=== PATIENT | female | born 1990 | race Caucasian/White ===

== ENCOUNTER 2020-06-05 14:42 | Inpatient (IN) | payer MEDICAID ==
[~2020-06-05] VITALS: Ht 149.9 cm; Wt 88.8 kg
[2020-06-05] MEDS: NICOTINE 21MG/24HR 1 EA TRANSDERMAL TD SCH (09:00)
[2020-06-05] MEDS ORDERED: LEVE500T5 PO (16:02)
[2020-06-05] MEDS ORDERED: XULA1DIS TD (16:02)
[2020-06-05] MEDS ORDERED: LATU20TA PO (16:02)
[2020-06-05] MEDS ORDERED: MELA5TAB21 PO (16:02)
[2020-06-05] MEDS ORDERED: TRAZ-252 PO (16:02)
[2020-06-05] MEDS ORDERED: LATU40TA PO (16:02)
[2020-06-05] MEDS ORDERED: ATIV1TAB10 PO (16:05)
[2020-06-05] MEDS ORDERED: MELA1TAB9 PO (16:21)
[2020-06-05] MEDS ORDERED: MOM 30ML SUSPENSION UDC PO PRN (17:45)
[2020-06-05] MEDS: LURASIDONE HCL 40 MG TAB (LATUDA) PO SCH (18:40)
[2020-06-05] MEDS ORDERED: OLANZapine ORAL DISINTEGRATING TAB 5MG PO PRN (18:45)
[2020-06-05 18:47] VITALS: BP 138/84
[2020-06-05] MEDS: LORazepam 0.5 MG TAB PO PRN (18:49)
[2020-06-05] MEDS ORDERED: OLANZapine ORAL DISINTEGRATING TAB 5MG PO ONE (19:00)
[2020-06-05 19:54] VITALS: BP 156/97
[2020-06-05] MEDS: levETIRAcetam 250MG TABLET (KEPPRA) PO SCH (20:03)
[2020-06-06 06:23] VITALS: BP 143/91
[2020-06-06] MEDS: levETIRAcetam 250MG TABLET (KEPPRA) PO SCH ×2 (08:07→20:10)
[2020-06-06] MEDS: LURASIDONE HCL 40 MG TAB (LATUDA) PO SCH ×2 (08:07→18:15)
[2020-06-06] MEDS: NICOTINE 21MG/24HR 1 EA TRANSDERMAL TD SCH (08:09)
[2020-06-06] MEDS ORDERED: OLANZapine ORAL DISINTEGRATING TAB 5MG PO SCH (09:00)
[2020-06-06] MEDS: ACETAMINOPHEN TAB 650MG DOSE (2X325MG) PO PRN (10:12)
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
[2020-06-06] MEDS: LORazepam 0.5 MG TAB PO PRN (16:41)
[2020-06-06] MEDS: OLANZapine ORAL DISINTEGRATING TAB 5MG PO PRN (16:41)
[2020-06-06 16:58] VITALS: BP 128/82
--- NOTE | 2020-06-06 17:40 | HPEPDOC ---
[facility] Medical History & Physical Date of Admission Jun 06, 2020 Date of Service: Jun 06, 2020 Attending Physician: GUILLERMINA JACOBS MD History and Physical CHIEF COMPLAINT: psychosis HISTORY OF PRESENT ILLNESS: Mrs. Lanza is a 30-year-old female, admitted to [facility] with unspecified psychosis. Per report, patient hallucinating, observed speaking to individuals that are not in the room. She is transferred from [place] emergency department. She speaking to herself in the third person. . She is cooperative, and is answering questions. However, given her active psychosis, it is possible that her history may not be entirely reliable. She reports past medical history of diabetes mellitus and seizure disorder. On review of systems she complains of a sharp right-sided chest pain that is worse on inspiration. She reports a mild cough, now resolved but does not have any sputum production or shortness of breath. She denies fevers and chills. PAST MEDICAL HISTORY: 1. Type 2 diabetes mellitus 2. Seizure disorder PAST SURGICAL HISTORY: Patient was unable to specify, prior records are not available. SOCIAL HISTORY: smoker, unable to quantify denies etoh denies illicits FAMILY HISTORY: Patient is unable to specify, review of records did not yield information. ALLERGIES: Please see below. REVIEW OF SYSTEMS: CONSTITUTIONAL: patient denies fevers, chills HEENT: patient denies blurred vision, loss of vision, headache,. CARDIOVASCULAR: Patient reports sharp stabbing chest pain on the right side, denies pressure or pain, denies shortness of breath, denies radiation, denies palpitations RESPIRATORY: patient denies shortness of breath, cough, hemoptysis. GASTROINTESTINAL: patient denies abdominal pain, n/v/d, blood in stool. GENITOURINARY: patient denies dysuria, discharge. SKIN: patient denies rashes. MUSCULOSKELETAL: patient denies joint pain, neck pain. NEUROLOGICAL: patient denies focal weakness, numbness, seizures. PSYCHIATRIC: Patient is cooperative, speaking in the third person, avoids eye contact ENDOCRINE: patient denies polyuria, heat intolerance, cold intolerance. HEMATOLOGIC/LYMPHATIC: patient denies easy bruising. HOME MEDICATIONS: Please see below. PHYSICAL EXAMINATION: VITAL SIGNS: please see below General: NAD, comfortable HEENT: PERRLA, EOMI, sclerae clear. Right eye strabismus, reports present for many years. Neck: supple, normal ROM, no JVD Respiratory: lungs CTAB, no wheeze, no rales, no crackles CVS: RRR, normal S1, S2, no murmurs Abdo: soft, no masses, no hepatosplenomegaly, BS+, no rebound tenderness Extremities: no edema, pulses 2+ MSK: no joint deformities, normal ROM Neuro: no focal neuro deficits, moving all 4 extremities, CN2-12 intact. S trength 5/5 in all 4 extremities. No nystagmus. Psych: calm, cooperative, AAO x 3 LABORATORY DATA: See below. MICROBIOLOGY: Please see below. ASSESSMENT: 22-year-old female with a past medical history of systems are reported. Type 2 diabetes, admitted to the [facility] for unspecified psychosis. Hospitalist service consulted for assistance with medical management. She reported sharp pain on the right side of her chest that is worse with inspiration. Suspect pleuritic versus musculoskeletal pain. PLAN: Chest pain: R sided, stabbing, worse with inspiration. Suspect pleuritics vs MSK/chostochondritis. Will obtain CXR. Check Trop. Check EKG. Cough: resolved. reports mild, denies shortness of breath, sputum production. No hx of recent travel or sick contacts. Check CXR. Hx of DM2: patient reports, will check a1c. No diabetic meds on record. Seizure disorder: takes keppra 500 mg PO bid. No recent hx of seizure. Continue present regimen. Mild leukocytosis: noticed on transfer papers from [place]. UA showed some bacteria, trace LE. Patient is asymptomatic. Psychosis: per psychiatry Thank you for consult. Please reconsult as needed. Vital Signs Vital Signs Date Time Temp Pulse Resp B/P (MAP) Pulse Ox O2 Delivery O2 Flow Rate FiO2 06/06/20 16:58 98.2 90 20 128/82 (97) 06/05/20 15:44 96 Room Air Laboratory Data Labs 24H Laboratory Tests 2 06/06/20 09:19: Bedside Glucose (Misc Panel) 148H Home Medications Scheduled Lurasidone Hydrochloride (Latuda) 40 Mg Tablet, 40 MG PO QHS Lurasidone Hydrochloride (Latuda) 20 Mg Tablet, 20 MG PO QAM Norelgestromin/Ethin.estradiol (Xulane Patch) 1 Each Patch.tdwk, 1 PATCH TD QWEEK Trazodone HCl (Trazodone HCl) 50 Mg Tablet, 50 MG PO QHS levETIRAcetam (levETIRAcetam) 500 Mg Tablet, 500 MG PO BID Scheduled PRN Lorazepam (Ativan) 0.5 Mg Tablet, 0.5 MG PO DAILY PRN for ANXIETY Melatonin (Melatonin) 5 Mg Tablet, 5 MG PO QHS PRN for SLEEP Allergies Coded Allergies: aripiprazole (Verified Allergy, Unknown, 06/05/20) paroxetine (Verified Allergy, Unknown, 06/05/20) tomato (Verified Allergy, Unknown, 06/05/20) A-FIB/CHADSVASC A-FIB History Current/History of A-Fib/PAF?: No Current PO Anticoag Therapy: No Age/Risk Factor Scoring CHADSVASC: CHADSVASC Response (Comments) Value Age Risk Factor Age < 65 years old 0 Gender Risk Factor Female 1 Hx of CHF No 0 Hx of HTN No 0 Hx of Stroke/TIA/or VTE No 0 Hx of Diabetes No 0 Hx of Vascular Disease No 0 Total 1 GIULLERMINA JACOBS MD Jun 06, 2020 17:40
[2020-06-06 17:44] LABS: BASO % 0.3 % (0.0-1.0); EOS # 0.1 10^3/uL (0.0-0.5); EOS % 0.4 % (0.0-3.0); HEMOGLOBIN 13.1 g/dl (12.0-15.5); LYMPH # 3.1 10^3/uL (1.5-5.0); LYMPH % 27.4 % (24.0-44.0); MEAN CORPUSCULAR HGB CONC 33.6 g/dl (32.0-36.5); MEAN CORPUSCULAR VOLUME 92.4 fl (80.0-96.0); NEUTROPHILS # 7.2 10^3/uL (1.5-8.5); NEUTROPHILS % 62.5 % (36.0-66.0); PLATELET COUNT, AUTOMATED 278 10^3/uL (150-450); RED BLOOD COUNT 4.22 10^6/uL (4.00-5.40); WHITE BLOOD COUNT 11.5 10^3/uL (4.0-10.0)
[2020-06-06 18:09] LABS: HEMOGLOBIN A1c 5.9 %
[2020-06-06 18:16] LABS: ALBUMIN 3.4 GM/DL (3.2-5.2); ALT/SGPT 18 U/L (12-78); BILIRUBIN,TOTAL 0.3 MG/DL (0.2-1.0); BLOOD UREA NITROGEN 10 MG/DL (7-18); CALCIUM LEVEL 8.6 MG/DL (8.5-10.1); CARBON DIOXIDE LEVEL 27 MEQ/L (21-32); CHLORIDE LEVEL 105 MEQ/L (98-107); CREATININE FOR GFR 0.82 MG/DL (0.55-1.30); GLOMERULAR FILTRATION RATE > 60.0 (>60); GLUCOSE, FASTING 115 MG/DL (70-100); MAGNESIUM LEVEL 2.2 MG/DL (1.8-2.4); POTASSIUM SERUM 3.9 MEQ/L (3.5-5.1); SODIUM LEVEL 140 MEQ/L (136-145); TOTAL PROTEIN 7.6 GM/DL (6.4-8.2); TROPONIN I < 0.02 NG/ML (< 0.10)
[2020-06-06] MEDS: traZODone 50 MG TAB PO PRN (20:10)
--- NOTE | 2020-06-07 05:37 | ECGEPIP ---
[facility] Test Date: 2020-06-06 Pat Name: SHELDON JIMENEZ Department: Room: [place] [address] Gender: Female Sql Developer: LOUIE : 1990 Requested By: GUILLERMINA JACOBS Order Number: [id number] Reading MD: Faye Page Measurements Intervals [place] Rate: 71 P: 54 MN: 163 QRS: 41 QRSD: 85 T: 42 QT: 384 QTc: 419 Interpretive Statements SINUS RHYTHM WITH SINUS ARRHYTHMIA RIGHT VENT COND DELAY LOW QRS VOLTAGE IN PRECORDIAL LEADS T WAVE ABN V2 AND V3 PRWP NO PRIOR Electronically Signed on 06-07-2020 5:36:54 EDT by Faye Page
[2020-06-07 06:37] VITALS: BP 128/90
[2020-06-07] MEDS: levETIRAcetam 250MG TABLET (KEPPRA) PO SCH ×2 (08:33→20:01)
[2020-06-07] MEDS: LURASIDONE HCL 40 MG TAB (LATUDA) PO SCH ×2 (08:33→17:58)
[2020-06-07] MEDS: NICOTINE 21MG/24HR 1 EA TRANSDERMAL TD SCH (08:34)
--- NOTE | 2020-06-07 11:17 | REP ---
INDICATION: chest pain, cough. COMPARISON: None. TECHNIQUE: SINGLE PORTABLE AP VIEW OF THE CHEST WAS PERFORMED. FINDINGS: THERE IS NO ACUTE INFILTRATE OR PULMONARY EDEMA. LUNGS ARE CLEAR. HEART IS NOT SIGNIFICANTLY ENLARGED. MEDIASTINAL SILHOUETTE IS UNREMARKABLE. THE VISUALIZED OSSEOUS STRUCTURES ARE INTACT. IMPRESSION: NO ACUTE PULMONARY DISEASE. A PRELIMINARY REPORT WAS PROVIDED BY [facility] AT THE TIME OF THE EXAM. <Electronically signed by Akash Red > 06/07/20 1113
[2020-06-07] MEDS: OLANZapine ORAL DISINTEGRATING TAB 5MG PO PRN ×2 (11:41→16:17)
--- NOTE | 2020-06-07 15:22 | MHIPNPDOC ---
[facility] Progress Note Progress Note DATE OF SERVICE: 06/07/20 HISTORY: Patient is a 30-year old Single, Disabled, Domiciled, Female who was a 9.57 from [facility] for psychotic symptoms. Patient was exhibiting auditory hallucinations, homicidal ideation and disorganized thought processes. She is cognitively VITAL SIGNS: See below. NEW TEST RESULTS: CURRENT MEDICATIONS: See below. MENTAL STATUS EXAMINATION: Patient is a 30-year old female, who is admitted to [facility] on a 9.39 legal status for psychotic symptoms and homicidal threats. She is dressed in hospital scrubs, her hygiene and grooming is fair. Her eye contact is fleeting. Speech: Is spontaneous, mildly fast reg tone and volume Language skills are incoherent Thought processes including: non-linear, not reality based Thought content: Patient is reporting depression, no anxiety, remains psychotic, observed to be speaking auditory hallucinations and speaking in third person. Abstract reasoning, and computation: Poor Description of associations: Responding to internal stimuli, speaks in 3rd person Description of abnormal or psychotic thoughts: Auditory hallucinations, states she is a "vampire human" fantasy filled thinking, at times in the interview Judgment: poor Insight: poor Orientation: alert and oriented to person, place, time and situation. Recent and remote memory: intact Attention span and concentration: poor Language: fair Fund of knowledge: below average Mood: mildly irritable Affect: flat DIAGNOSES: Unspecified Psychotic Disorder Type 2 diabetes mellitus Seizure disorder Unspecified Intellectual disability ASSESSMENT: Patient continues to be exhibiting psychotic symptoms, talking to herself, talking in 3rd person, and demonstrating poor insight and judgment. She continues to talk to herself, to to other people in the room. She is ob served to be delusional, with auditory hallucinations. "I am not depressed, I am not anxious, I want to get better but [place]'s not better. "I am a vampire human and I want to have human blood in my diet" Patient describes depressive symptoms later in interview and states "I am sad, I have tears but they don't show how my family feels about [place]. I think I will have to live in a psychiatric hospital" MANAGEMENT PLAN: Continue all medications. Patient is not stable for discharge continues to exhibit psychotic symptoms and TIME SPENT: 25 minutes. Vital Signs Vital Signs Date Time Temp Pulse Resp B/P (MAP) Pulse Ox O2 Delivery O2 Flow Rate FiO2 06/07/20 06:37 97.8 100 18 128/90 (103) 06/05/20 15:44 96 Room Air Laboratory Data 24H Labs Laboratory Tests 2 06/06/20 17:34: Immature Granulocyte % (Auto) 0.4, Neutrophils (%) (Auto) 62.5, Lymphocytes (%) (Auto) 27.4, Monocytes (%) (Auto) 9.0H, Eosinophils (%) (Auto) 0.4, Basophils (%) (Auto) 0.3, Neutrophils # (Auto) 7.2, Lymphocytes # (Auto) 3.1, Monocytes # (Auto) 1.0H, Eosinophils # (Auto) 0.1, Basophils # (Auto) 0.0, Nucleated Red Blood Cells % (auto) 0.0, Anion Gap 8, Glomerular Filtration Rate > 60.0, Est imated Mean Plasma Glucose 123H, Hemoglobin A1c 5.9, Calcium Level 8.6, Magnesium Level 2.2, Total Bilirubin 0.3, Aspartate Amino Transf (AST/SGOT) 21, Alanine Aminotransferase (ALT/SGPT) 18, Alkaline Phosphatase 72, Troponin I < 0.02, Total Protein 7.6, Albumin 3.4, Albumin/Globulin Ratio 0.8L 06/06/20 18:10: Urine Color YELLOW, Urine Appearance HAZY, Urine pH 5.0, Urine Specific [place] 1.018, Urine Protein NEGATIVE, Urine Glucose (UA) NEGATIVE, Urine Ketones NEGATIVE, Urine Blood NEGATIVE, Urine Nitrite NEGATIVE, Urine Bilirubin NEGATIVE, Urine Urobilinogen 0.2, Urine Leukocyte Esterase NEGATIVE, Urine WBC (Auto) 5H, Urine RBC (Auto) 0, Urine Hyaline Casts (Auto) 0, Urine Bacteria (Auto) 1+H, Urine Squamous Epithelial Cells 3, Urine Mucus (Auto) SMALL, Urine Sperm (Auto) CBC/BMP Laboratory Tests 06/06/20 17:34 Current Medications Current Medications Medications (Trade) Dose Ordered Sig/Reese Route PRN Reason Start Time Stop Time Status Last Admin Dose Admin Acetaminophen (Tylenol Tab) 650 mg Q6HP PRN PO HEADACHE or DISCOMFORT 06/05/20 17:45 06/06/20 10:12 Al Hydrox/Mg Hydrox/Simethicone (Mylanta) 30 ml Q4HP PRN PO HEARTBURN/INDIGESTION 10/17/20 17:45 Home Med (Med Rec Complete!) ASDIRECTED XX 06/05/20 16:30 06/05/20 16:23 DC Levetiracetam (Keppra) 500 mg BID PO 06/05/20 21:00 06/07/20 08:33 Lorazepam (Ativan) 0.5 mg DAILY PRN PO ANXIETY 06/05/20 17:45 06/06/20 16:41 Lurasidone HCl (Latuda) 40 mg DAILY@08 PO 06/06/20 08:00 06/07/20 08:33 Lurasidone HCl (Latuda) 40 mg DAILY@18 PO 06/05/20 18:00 06/06/20 18:15 Magnesium Hydroxide (Milk Of Magnesia) 30 ml DAILYPRN PRN PO CONSTIPATION 06/05/20 17:45 Nicotine (Nicoderm Cq 21mg) 1 patch DAILY TD 06/05/20 09:00 Olanzapine (ZyPREXA ZYDIS) 5 mg BIDP PRN PO AGITATION 06/05/20 18:45 06/06/20 13:40 DC 06/05/20 20:03 Olanzapine (ZyPREXA ZYDIS) 5 mg Q4HP PRN PO AGITATION 06/06/20 13:45 06/06/20 16:41 Olanzapine (ZyPREXA ZYDIS) 10 mg BID PO 06/06/20 09:00 06/06/20 13:39 DC 06/06/20 08:08 Trazodone HCl (Desyrel) 50 mg QHSP PRN PO INSOMNIA 06/05/20 17:45 06/06/20 20:10 Allergies Coded Allergies: aripiprazole (Verified Allergy, Unknown, 06/05/20) paroxetine (Verified Allergy, Unknown, 06/05/20) tomato (Verified Allergy, Unknown, 06/05/20) THEODORA DALTON NP Jun 07, 2020 11:32
[2020-06-07] MEDS: LORazepam 0.5 MG TAB PO PRN (16:33)
[2020-06-07 17:25] VITALS: BP 147/82
[2020-06-07] MEDS: traZODone 50 MG TAB PO PRN (20:01)
[2020-06-08 06:16] VITALS: BP 144/92
[2020-06-08] MEDS: levETIRAcetam 250MG TABLET (KEPPRA) PO SCH ×2 (08:07→20:00)
[2020-06-08] MEDS: LURASIDONE HCL 40 MG TAB (LATUDA) PO SCH ×2 (08:07→18:15)
[2020-06-08] MEDS: NICOTINE 21MG/24HR 1 EA TRANSDERMAL TD SCH (08:09)
[2020-06-08] MEDS: OLANZapine 5 MG TAB PO SCH ×2 (11:31→20:00)
--- NOTE | 2020-06-08 15:13 | MHIPNPDOC ---
[facility] Progress Note Progress Note DATE OF SERVICE: 06/08/20 HISTORY: Patient is a 30-year old Single, Disabled, Domiciled, Female who was a 9.57 from [facility] for psychotic symptoms. Patient was exhibiting auditory hallucinations, homicidal ideation and disorganized thought processes. She is cognitively delayed. VITAL SIGNS: See below. NEW TEST RESULTS: CURRENT MEDICATIONS: See below. MENTAL STATUS EXAMINATION: Patient is a 30-year old female, who is admitted to [facility] on a 9.39 legal status for psychotic symptoms and homicidal threats. She is dressed in hospital scrubs, her hygiene and grooming is poor. Her eye contact is fleeting. Speech: Is normal tone and volume Language skills are incoherent Thought processes including: non-linear, not reality based Thought content: Patient is reporting depression, no anxiety, remains psychotic, observed to be speaking to auditory hallucinations and speaking in third person. Abstract reasoning, and computation: Poor Description of associations: Responding to internal stimuli, speaks in 3rd person Description of abnormal or psychotic thoughts: Auditory hallucinations, many times throughout the interview she reports that she is her friend Raquel, her Aunt Luna and then states [place] is talking through this provider. Believes that her family is Judgment: poor Insight: poor Orientation: alert and oriented to person, place, time Recent and remote memory: intact Attention span and concentration: poor Language: fair Fund of knowledge: below average Mood: depressed Affect: flat DIAGNOSES: Unspecified Psychotic Disorder Type 2 diabetes mellitus Seizure disorder Unspecified Intellectual disability ASSESSMENT: Patient continues to be exhibiting psychotic symptoms, talking to herself, talking in 3rd person, and demonstrating poor insight and judgment. She continues to talk to herself, to to other people in the room. She is observed to be delusional, with auditory hallucinations. Patient states that the voices "Aunt Luna" are telling her to shave her armpits and legs. Later in the interview, she states that she is now Raquel and that "they keep putting sleeping pills in [place]'s to kill her." Raquel then states that she is and that she needs to stay in the hospital until her baby is born. Patient states she needs has to stay in the hospital because "My whole family is " Patient remains acutely psychotic. MANAGEMENT PLAN: Continue all medications. Patient is not stable for discharge continues to exhibit psychotic symptoms. TIME SPENT: 20 minutes. Vital Signs Vital Signs Date Time Temp Pulse Resp B/P (MAP) Pulse Ox O2 Delivery O2 Flow Rate FiO2 06/08/20 06:16 98.3 112 16 144/92 (109) 98 Room Air Current Medications Current Medications Medications (Trade) Dose Ordered Sig/Reese Route PRN Reason Start Time Stop Time Status Last Admin Dose Admin Acetaminophen (Tylenol Tab) 650 mg Q6HP PRN PO HEADACHE or DISCOMFORT 06/05/20 17:45 06/06/20 10:12 Al Hydrox/Mg Hydrox/Simethicone (Mylanta) 30 ml Q4HP PRN PO HEARTBURN/INDIGESTION 06/05/20 17:45 Home Med (Med Rec Complete!) ASDIRECTED XX 06/05/20 16:30 06/05/20 16:23 DC Levetiracetam (Keppra) 500 mg BID PO 06/05/20 21:00 06/08/20 08:07 Lorazepam (Ativan) 0.5 mg DAILY PRN PO ANXIETY 06/05/20 17:45 06/07/20 16:33 Lurasidone HCl (Latuda) 40 mg DAILY@08 PO 06/06/20 08:00 06/08/20 08:07 Lurasidone HCl (Latuda) 40 mg DAILY@18 PO 06/05/20 18:00 06/07/20 17:58 Magnesium Hydroxide (Milk Of Magnesia) 30 ml DAILYPRN PRN PO CONSTIPATION 06/05/20 17:45 Nicotine (Nicoderm Cq 21mg) 1 patch DAILY TD 06/05/20 09:00 Olanzapine (ZyPREXA ZYDIS) 5 mg BIDP PRN PO AGITATION 06/05/20 18:45 06/06/20 13:40 DC 06/05/20 20:03 Olanzapine (ZyPREXA ZYDIS) 5 mg Q4HP PRN PO AGITATION 06/06/20 13:45 06/07/20 16:17 Olanzapine (ZyPREXA ZYDIS) 10 mg BID PO 06/06/20 09:00 06/06/20 13:39 DC 06/06/20 08:08 Olanzapine (ZyPREXA) 5 mg BID PO 06/08/20 09:00 06/08/20 11:31 Trazodone HCl (Desyrel) 50 mg QHSP PRN PO INSOMNIA 06/05/20 17:45 06/07/20 20:01 Allergies Coded Allergies: aripiprazole (Verified Allergy, Unknown, 06/05/20) paroxetine (Verified Allergy, Unknown, 06/05/20) tomato (Verified Allergy, Unknown, 06/05/20) THEODORA DALTON NP Jun 08, 2020 15:13
[2020-06-08] MEDS: traZODone 50 MG TAB PO PRN (20:00)
[2020-06-08] MEDS: ACETAMINOPHEN TAB 650MG DOSE (2X325MG) PO PRN (21:36)
[2020-06-08] MEDS: OLANZapine ORAL DISINTEGRATING TAB 5MG PO PRN (23:03)
[2020-06-09 06:31] VITALS: BP 142/94
[2020-06-09] MEDS: LURASIDONE HCL 40 MG TAB (LATUDA) PO SCH ×2 (07:25→17:28)
[2020-06-09] MEDS: NICOTINE 21MG/24HR 1 EA TRANSDERMAL TD SCH (09:00)
[2020-06-09] MEDS: levETIRAcetam 250MG TABLET (KEPPRA) PO SCH ×2 (09:03→20:13)
[2020-06-09] MEDS: OLANZapine 5 MG TAB PO SCH ×2 (09:03→20:13)
[2020-06-09] MEDS: OLANZapine ORAL DISINTEGRATING TAB 5MG PO PRN (09:04)
[2020-06-09] MEDS: ACETAMINOPHEN TAB 650MG DOSE (2X325MG) PO PRN (11:18)
[2020-06-09] MEDS: LORazepam 0.5 MG TAB PO PRN (12:43)
[2020-06-09 17:13] VITALS: BP 155/87
--- NOTE | 2020-06-09 17:32 | MHIPNPDOC ---
[facility] Progress Note Progress Note DATE OF SERVICE: 06/09/20 HISTORY: Patient is a 30-year old Single, Disabled, Domiciled, Female who was a 9.57 from [facility] for psychotic symptoms. Patient was exhibiting auditory hallucinations, homicidal ideation and disorganized thought processes. She is cognitively delayed. VITAL SIGNS: See below. NEW TEST RESULTS: CURRENT MEDICATIONS: See below. MENTAL STATUS EXAMINATION: Patient is a 30-year old female, who is admitted to [facility] on a 9.39 legal status for psychotic symptoms and homicidal threats. She is dressed in hospital scrubs, her hygiene and grooming is poor. Her eye contact is fleeting. Speech: Is normal tone and volume Language skills are incoherent Thought processes including: non-linear, not reality based Thought content: Patient is reporting depression, no anxiety, remains psychotic, observed to be speaking to auditory hallucinations and speaking in third person. Abstract reasoning, and computation: Poor Description of associations: Responding to internal stimuli, speaks in 3rd person Description of abnormal or psychotic thoughts: Auditory hallucinations, many times throughout the interview she reports that she is her brother is telling her to take scissors to cut herself. She states that she is "Ok" and then states that the voices are horrible. She states "Am I going crazy?" She had reported that her voices are command hallucinations and that they are encouraging her to hurt herself. She continued to report that she was not [place] and that [place] was in danger Judgment: poor Insight: poor Orientation: alert and oriented to person, place, time Recent and remote memory: intact Attention span and concentration: poor Language: fair Fund of knowledge: below average Mood: depressed "I am ok" Affect: blunted DIAGNOSES: Unspecified Psychotic Disorder Type 2 diabetes mellitus Seizure disorder Unspecified Intellectual disability ASSESSMENT: Patient continues to be exhibiting psychotic symptoms, talking to herself, talking in 3rd person, and demonstrating poor insight and judgment. She continues to talk to herself, to to other people in the room. She is observed to be delusional, with auditory hallucinations. Patient states that the voices "Aunt Luna" are telling her to shave her armpits and legs. Later in the interview, she states that she is now Raquel and that "they keep putting sleeping pills in [place]'s to kill her." Raquel then states that she is and that she needs to stay in the hospital until her baby is born. Patient states she needs has to stay in the hospital because "My whole family is " I spoke to her sitter today, her sitter had reported that she speaks in 3rd person, but prior to and after her interview with me patient did not have any reporting of wanting to hurt herself. When she was in group she was allowed to have scissors but she refused to use them and returned them. Patient remains acutely psychotic. MANAGEMENT PLAN: Continue all medications. Patient is not stable for discharge continues to exhibit psychotic symptoms. TIME SPENT: 15 minutes. Vital Signs Vital Signs Date Time Temp Pulse Resp B/P (MAP) Pulse Ox O2 Delivery O2 Flow Rate FiO2 06/09/20 17:13 98.1 101 22 155/87 (109) 97 Room Air Current Medications Current Medications Medications (Trade) Dose Ordered Sig/Reese Route PRN Reason Start Time Stop Time Status Last Admin Dose Admin Acetaminophen (Tylenol Tab) 650 mg Q6HP PRN PO HEADACHE or DISCOMFORT 06/05/20 17:45 06/09/20 11:18 Al Hydrox/Mg Hydrox/Simethicone (Mylanta) 30 ml Q4HP PRN PO HEARTBURN/INDIGESTION 06/05/20 17:45 Home Med (Med Rec Complete!) ASDIRECTED XX 06/05/20 16:30 06/05/20 16:23 DC Levetiracetam (Keppra) 500 mg BID PO 06/05/20 21:00 06/09/20 09:03 Lorazepam (Ativan) 0.5 mg DAILY PRN PO ANXIETY 06/05/20 17:45 06/09/20 12:43 Lurasidone HCl (Latuda) 40 mg DAILY@08 PO 06/06/20 08:00 06/09/20 07:25 Lurasidone HCl (Latuda) 40 mg DAILY@18 PO 06/05/20 18:00 06/08/20 18:15 Magnesium Hydroxide (Milk Of Magnesia) 30 ml DAILYPRN PRN PO CONSTIPATION 06/05/20 17:45 Nicotine (Nicoderm Cq 21mg) 1 patch DAILY TD 06/05/20 09:00 Olanzapine (ZyPREXA ZYDIS) 5 mg BIDP PRN PO AGITATION 06/05/20 18:45 06/06/20 13:40 DC 06/05/20 20:03 Olanzapine (ZyPREXA ZYDIS) 5 mg Q4HP PRN PO AGITATION 06/06/20 13:45 06/09/20 09:04 Olanzapine (ZyPREXA ZYDIS) 10 mg BID PO 06/06/20 09:00 06/06/20 13:39 DC 06/06/20 08:08 Olanzapine (ZyPREXA) 5 mg BID PO 06/08/20 09:00 06/09/20 09:03 Trazodone HCl (Desyrel) 50 mg QHSP PRN PO INSOMNIA 06/05/20 17:45 06/09/20 11:31 DC 06/08/20 20:00 Trazodone HCl (Desyrel) 100 mg QPM PO 06/09/20 21:00 Allergies Coded Allergies: acetaminophen (Verified Allergy, Unknown, 06/09/20) PER PT'S MOTHER aripiprazole (Verified Allergy, Unknown, 06/05/20) methylphenidate (Verified Allergy, Unknown, 06/09/20) PER PT'S MOTHER oxycodone (Verified Allergy, Unknown, 06/09/20) PER PT'S MOTHER paroxetine (Verified Allergy, Unknown, 06/05/20) tomato (Verified Allergy, Unknown, 06/05/20) THEODORA DALTON NP Jun 09, 2020 17:32
[2020-06-09] MEDS: traZODone 100 MG TAB PO SCH (20:13)
[2020-06-10 07:21] VITALS: BP 153/78
[2020-06-10] MEDS: LURASIDONE HCL 40 MG TAB (LATUDA) PO SCH ×2 (08:56→17:04)
[2020-06-10] MEDS: NICOTINE 21MG/24HR 1 EA TRANSDERMAL TD SCH (09:00)
[2020-06-10] MEDS: OLANZapine 5 MG TAB PO SCH (09:54)
[2020-06-10] MEDS: levETIRAcetam 250MG TABLET (KEPPRA) PO SCH ×2 (09:54→20:19)
--- NOTE | 2020-06-10 16:06 | MHIPNPDOC ---
[facility] Progress Note Progress Note DATE OF SERVICE: 06/10/20 HISTORY: Patient is a 30-year old Single, Disabled, Domiciled, Female who was a 9.57 from [facility] for psychotic symptoms. Patient was exhibiting auditory hallucinations, homicidal ideation and disorganized thought processes. She is cognitively delayed. VITAL SIGNS: See below. NEW TEST RESULTS: CURRENT MEDICATIONS: See below. MENTAL STATUS EXAMINATION: Patient is a 30-year old female, who is [facility] on a 9.39 legal status for psychotic symptoms and homicidal threats. She is dressed in hospital scrubs, her hygiene and grooming is poor. Her eye contact is fleeting. Speech: Is normal tone and volume Language skills are incoherent Thought processes including: non-linear, not reality based Thought content: Patient is reporting depression, no anxiety, remains psychotic, observed to be speaking to auditory hallucinations and speaking in third person. Abstract reasoning, and computation: Poor Description of associations: Responding to internal stimuli, speaks in 3rd person Description of abnormal or psychotic thoughts: Auditory hallucinations, many times throughout the interview she reports that she is her brother is telling her to take scissors to cut herself. She states that she is "Ok" and then states that the voices are horrible. She states "Am I going crazy?" She had reported that her voices are command hallucinations and that they are encouraging her to hurt herself. She continued to report that she was not [place] and that [place] was in danger Judgment: poor Insight: poor Orientation: alert and oriented to person, place, time Recent and remote memory: intact Attention span and concentration: poor Language: fair Fund of knowledge: below average Mood: depressed "I am ok" Affect: blunted DIAGNOSES: Unspecified Psychotic Disorder Schizoaffective Disorder Cognitive Impairment Type 2 diabetes mellitus Seizure disorder Unspecified Intellectual disability ASSESSMENT: Patient continues to be exhibiting psychotic symptoms, talking to herself, talking in 3rd person, and demonstrating poor insight and judgment. She continues to talk to herself, to to other people in the room. She is observed to be delusional, with auditory hallucinations. Patient states that she is unsure where she will return as "everyone in her family is gone" Then states that her mother told her that she had to "get out." States that she is living as a "vampire-human and that she has no bones in her body." She then started speaking in third person and stated that she is [place] and that [place] cannot go home because she ([place]nette) was going to kill her or had already killed [place]. Throughout the interview repeatedly stood up and down in the seat but acted like she was going to the window and stood in one place responding quietly to internal stimuli. Patient remains acutely psychotic. MANAGEMENT PLAN: Continue all medications. Patient is not stable for discharge continues to exhibit psychotic symptoms. TIME SPENT: 20 minutes. ASSESSMENT: MANAGEMENT PLAN: . TIME SPENT: minutes. Vital Signs Vital Signs Date Time Temp Pulse Resp B/P (MAP) Pulse Ox O2 Delivery O2 Flow Rate FiO2 06/10/20 07:21 97.8 84 16 153/78 (103) Room Air 06/09/20 17:13 97 Current Medications Current Medications Medications (Trade) Dose Ordered Sig/Reese Route PRN Reason Start Time Stop Time Status Last Admin Dose Admin Acetaminophen (Tylenol Tab) 650 mg Q6HP PRN PO HEADACHE or DISCOMFORT 06/05/20 17:45 06/09/20 11:18 Al Hydrox/Mg Hydrox/Simethicone (Mylanta) 30 ml Q4HP PRN PO HEARTBURN/INDIGESTION 06/05/20 17:45 Home Med (Med Rec Complete!) ASDIRECTED XX 06/05/20 16:30 06/05/20 16:23 DC Levetiracetam (Keppra) 500 mg BID PO 06/05/20 21:00 06/10/20 09:54 Lorazepam (Ativan) 0.5 mg DAILY PRN PO ANXIETY 06/05/20 17:45 06/09/20 12:43 Lurasidone HCl (Latuda) 40 mg DAILY@08 PO 06/06/20 08:00 06/10/20 08:56 Lurasidone HCl (Latuda) 40 mg DAILY@18 PO 06/05/20 18:00 06/09/20 17:28 Magnesium Hydroxide (Milk Of Magnesia) 30 ml DAILYPRN PRN PO CONSTIPATION 06/05/20 17:45 Nicotine (Nicoderm Cq 21mg) 1 patch DAILY TD 06/05/20 09:00 Olanzapine (ZyPREXA ZYDIS) 5 mg BIDP PRN PO AGITATION 06/05/20 18:45 06/06/20 13:40 DC 06/05/20 20:03 Olanzapine (ZyPREXA ZYDIS) 5 mg Q4HP PRN PO AGITATION 06/06/20 13:45 06/09/20 09:04 Olanzapine (ZyPREXA ZYDIS) 10 mg BID PO 06/06/20 09:00 06/06/20 13:39 DC 06/06/20 08:08 Olanzapine (ZyPREXA) 5 mg BID PO 06/08/20 09:00 06/10/20 09:54 Trazodone HCl (Desyrel) 50 mg QHSP PRN PO INSOMNIA 06/05/20 17:45 06/09/20 11:31 DC 06/08/20 20:00 Trazodone HCl (Desyrel) 100 mg QPM PO 06/09/20 21:00 06/09/20 20:13 Allergies Coded Allergies: acetaminophen (Verified Allergy, Unknown, 06/09/20) PER PT'S MOTHER aripiprazole (Verified Allergy, Unknown, 06/05/20) methylphenidate (Verified Allergy, Unknown, 06/09/20) PER PT'S MOTHER oxycodone (Verified Allergy, Unknown, 06/09/20) PER PT'S MOTHER paroxetine (Verified Allergy, Unknown, 06/05/20) tomato (Verified Allergy, Unknown, 06/05/20) THEODORA DALTON NP Jun 10, 2020 11:38
[2020-06-10] MEDS: LORazepam 0.5 MG TAB PO PRN (17:16)
[2020-06-10] MEDS: ACETAMINOPHEN TAB 650MG DOSE (2X325MG) PO PRN (17:17)
[2020-06-10 19:08] VITALS: BP 139/89
[2020-06-10 19:09] VITALS: BP 139/73
[2020-06-10] MEDS: traZODone 100 MG TAB PO SCH (20:19)
[2020-06-10] MEDS: OLANZapine 10 MG TAB PO SCH (20:19)
[2020-06-11 06:14] VITALS: BP 136/81
[2020-06-11] MEDS: LURASIDONE HCL 40 MG TAB (LATUDA) PO SCH ×2 (08:32→17:04)
[2020-06-11] MEDS: levETIRAcetam 250MG TABLET (KEPPRA) PO SCH ×2 (08:32→20:14)
[2020-06-11] MEDS: OLANZapine 5 MG TAB PO SCH (08:33)
[2020-06-11] MEDS: NICOTINE 21MG/24HR 1 EA TRANSDERMAL TD SCH (08:33)
[2020-06-11] MEDS: OLANZapine ORAL DISINTEGRATING TAB 5MG PO PRN (11:06)
--- NOTE | 2020-06-11 13:15 | MHIPNPDOC ---
[facility] Progress Note Progress Note DATE OF SERVICE: 06/11/20 HISTORY: Patient is a 30-year old Single, Disabled, Domiciled, Female who was a 9.57 from [facility] for psychotic symptoms. Patient was exhibiting auditory hallucinations, homicidal ideation and disorganized thought processes. She is cognitively delayed. VITAL SIGNS: See below. NEW TEST RESULTS: CURRENT MEDICATIONS: See below. MENTAL STATUS EXAMINATION: Patient is a 30-year old female, who is admitted to [facility] on a 9.39 legal status for psychotic symptoms and homicidal threats. She is dressed in hospital scrubs, her hygiene and grooming is poor. Her eye contact is fleeting. Speech: Is normal tone and volume Language skills are incoherent Thought processes including: non-linear, not reality based states "I am confused, why am I here, when can I go home?" Thought content: Patient is reporting depression, reports elevated anxiety, remains psychotic, observed to be speaking to auditory hallucinations and speaking in third person but today this is minimally. Abstract reasoning, and computation: Poor Description of associations: Responding to internal stimuli, speaks in 3rd person Description of abnormal or psychotic thoughts: Auditory hallucinations, many times throughout the interview she reports that she is her brother is telling her to take scissors to cut herself. She states that she is "Ok" and then states that the voices are horrible. She states "Why doesn't my mother want me?" She had reported that her voices are command hallucinations and that they are encouraging her to hurt herself. S Judgment: poor Insight: poor Orientation: alert and oriented to person, place, time Recent and remote memory: intact Attention span and concentration: poor Language: fair Fund of knowledge: below average Mood: depressed "I am ok" Affect: blunted DIAGNOSES: Unspecified Psychotic Disorder Schizoaffective Disorder Cognitive Impairment Type 2 diabetes mellitus Seizure disorder Unspecified Intellectual disability ASSESSMENT: Patient continues to be exhibiting psychotic symptoms, talking to herself, talking in 3rd person, and demonstrating poor insight and judgment. She continues to talk to herself, to to other people in the room. She is observed to be delusional, with auditory hallucinations. She is confused in the interview. Patient has been on 1:1 sitter since her admission and at this time, there is no thought to remove this as she is confused and tearful. I do believe that she should be trialed on Q15 minute observations if staffing allows for this. Patient remains acutely psychotic. MANAGEMENT PLAN: Continue all medications. Patient is not stable for discharge continues to exhibit psychotic symptoms. TIME SPENT: 20 minutes. Vital Signs Vital Signs Date Time Temp Pulse Resp B/P (MAP) Pulse Ox O2 Delivery O2 Flow Rate FiO2 06/11/20 06:14 98.6 73 14 136/81 (99) Room Air 06/09/20 17:13 97 Current Medications Current Medications Medications (Trade) Dose Ordered Sig/Reese Route PRN Reason Start Time Stop Time Status Last Admin Dose Admin Acetaminophen (Tylenol Tab) 650 mg Q6HP PRN PO HEADACHE or DISCOMFORT 06/05/20 17:45 06/10/20 17:17 Al Hydrox/Mg Hydrox/Simethicone (Mylanta) 30 ml Q4HP PRN PO HEARTBURN/INDIGESTION 06/05/20 17:45 Home Med (Med Rec Complete!) ASDIRECTED XX 06/05/20 16:30 06/05/20 16:23 DC Levetiracetam (Keppra) 500 mg BID PO 06/05/20 21:00 06/11/20 08:32 Lorazepam (Ativan) 0.5 mg DAILY PRN PO ANXIETY 06/05/20 17:45 06/10/20 17:16 Lurasidone HCl (Latuda) 40 mg DAILY@08 PO 06/06/20 08:00 06/11/20 08:32 Lurasidone HCl (Latuda) 40 mg DAILY@18 PO 06/05/20 18:00 06/10/20 17:04 Magnesium Hydroxide (Milk Of Magnesia) 30 ml DAILYPRN PRN PO CONSTIPATION 06/05/20 17:45 Nicotine (Nicoderm Cq 21mg) 1 patch DAILY TD 06/05/20 09:00 Olanzapine (ZyPREXA ZYDIS) 5 mg BIDP PRN PO AGITATION 06/05/20 18:45 06/06/20 13:40 DC 06/05/20 20:03 Olanzapine (ZyPREXA ZYDIS) 5 mg Q4HP PRN PO AGITATION 06/06/20 13:45 06/11/20 11:06 Olanzapine (ZyPREXA ZYDIS) 10 mg BID PO 06/06/20 09:00 06/06/20 13:39 DC 06/06/20 08:08 Olanzapine (ZyPREXA) 5 mg BID PO 06/08/20 09:00 06/10/20 11:42 DC 06/10/20 09:54 Olanzapine (ZyPREXA) 5 mg QAM PO 06/11/20 09:00 06/11/20 08:33 Olanzapine (ZyPREXA) 10 mg QHS PO 06/10/20 21:00 06/10/20 20:19 Trazodone HCl (Desyrel) 50 mg QHSP PRN PO INSOMNIA 06/05/20 17:45 06/09/20 11:31 DC 06/08/20 20:00 Trazodone HCl (Desyrel) 100 mg QPM PO 06/09/20 21:00 06/10/20 20:19 Allergies Coded Allergies: acetaminophen (Verified Allergy, Unknown, 06/09/20) PER PT'S MOTHER aripiprazole (Verified Allergy, Unknown, 06/05/20) methylphenidate (Verified Allergy, Unknown, 06/09/20) PER PT'S MOTHER oxycodone (Verified Allergy, Unknown, 06/09/20) PER PT'S MOTHER paroxetine (Verified Allergy, Unknown, 06/05/20) tomato (Verified Allergy, Unknown, 06/05/20) THEODORA DALTON NP Jun 11, 2020 13:15
[2020-06-11] MEDS: LORazepam 0.5 MG TAB PO PRN (17:17)
[2020-06-11 18:06] VITALS: BP 143/86
[2020-06-11] MEDS: traZODone 100 MG TAB PO SCH (20:14)
[2020-06-11] MEDS: OLANZapine 10 MG TAB PO SCH (20:14)
[2020-06-12 06:36] VITALS: BP 126/73
[2020-06-12] MEDS: NICOTINE 21MG/24HR 1 EA TRANSDERMAL TD SCH (08:53)
[2020-06-12] MEDS: OLANZapine 5 MG TAB PO SCH (08:54)
[2020-06-12] MEDS: LURASIDONE HCL 40 MG TAB (LATUDA) PO SCH ×2 (08:55→17:59)
[2020-06-12] MEDS: levETIRAcetam 250MG TABLET (KEPPRA) PO SCH ×2 (08:55→20:15)
[2020-06-12] MEDS: MAALOX 30 ML SUSP *UDC PO PRN (12:54)
[2020-06-12] MEDS: OLANZapine ORAL DISINTEGRATING TAB 5MG PO PRN (14:37)
[2020-06-12] MEDS: LORazepam 0.5 MG TAB PO PRN (14:37)
[2020-06-12] MEDS: ACETAMINOPHEN TAB 650MG DOSE (2X325MG) PO PRN ×2 (15:55→22:00)
[2020-06-12 17:23] VITALS: BP 133/89
[2020-06-12] MEDS: traZODone 100 MG TAB PO SCH (20:15)
[2020-06-12] MEDS: OLANZapine 10 MG TAB PO SCH (20:15)
[2020-06-13 06:55] VITALS: BP 134/94
[2020-06-13] MEDS: levETIRAcetam 250MG TABLET (KEPPRA) PO SCH ×2 (08:19→20:44)
[2020-06-13] MEDS: OLANZapine 5 MG TAB PO SCH (08:19)
[2020-06-13] MEDS: LURASIDONE HCL 40 MG TAB (LATUDA) PO SCH ×2 (08:19→17:08)
[2020-06-13] MEDS: NICOTINE 21MG/24HR 1 EA TRANSDERMAL TD SCH (08:20)
[2020-06-13] MEDS: ACETAMINOPHEN TAB 650MG DOSE (2X325MG) PO PRN (14:00)
[2020-06-13 18:16] VITALS: BP 138/92
[2020-06-13] MEDS: traZODone 100 MG TAB PO SCH (20:44)
[2020-06-13] MEDS: OLANZapine 10 MG TAB PO SCH (20:44)
[2020-06-13] MEDS: OLANZapine ORAL DISINTEGRATING TAB 5MG PO PRN (22:45)
[2020-06-14 06:47] VITALS: BP 140/70
[2020-06-14] MEDS: NICOTINE 21MG/24HR 1 EA TRANSDERMAL TD SCH ×2 (08:33→16:49)
[2020-06-14] MEDS: levETIRAcetam 250MG TABLET (KEPPRA) PO SCH ×2 (08:34→20:04)
[2020-06-14] MEDS: OLANZapine 5 MG TAB PO SCH (08:34)
[2020-06-14] MEDS: LURASIDONE HCL 40 MG TAB (LATUDA) PO SCH ×2 (08:34→18:00)
[2020-06-14] MEDS ORDERED: OLANZapine 5 MG TAB PO ONE (09:00)
[2020-06-14] MEDS: ACETAMINOPHEN TAB 650MG DOSE (2X325MG) PO PRN ×2 (09:31→15:45)
--- NOTE | 2020-06-14 10:58 | MHIPNPDOC ---
[facility] [place] DATE OF SERVICE: 06/14/20 HISTORY: Patient is a 30-year old Single, Disabled, Domiciled, Female who was a 9.57 from [facility] for psychotic symptoms. Patient was exhibiting auditory hallucinations, homicidal ideation and disorganized thought processes. She is cognitively delayed. VITAL SIGNS: See below. NEW TEST RESULTS: CURRENT MEDICATIONS: See below. MENTAL STATUS EXAMINATION: Patient is a 30-year old female, who is admitted to [facility] on a 9.39 legal status for psychotic symptoms and homicidal threats. She is dressed in hospital scrubs, her hygiene and grooming is fair. Her eye contact is fleeting. Speech: Is normal tone and volume Language skills are incoherent Thought processes including: non-linear, thought blocking at times, mild loose associations Thought content: Patient is reporting depression, reports elevated anxiety, remains psychotic, not observed speaking to auditory hallucinations had minimal conversation in third person but today Abstract reasoning, and computation: Poor Description of associations: Responding to internal stimuli, speaks in 3rd person minimally Description of abnormal or psychotic thoughts: Auditory hallucinations, states that this is less today. Judgment: poor Insight: poor Orientation: alert and oriented to person, place, time Recent and remote memory: intact Attention span and concentration: poor Language: fair Fund of knowledge: below average Mood: "depressed a little, but happy" Affect: blunted DIAGNOSES: Unspecified Psychotic Disorder Schizoaffective Disorder Cognitive Impairment Type 2 diabetes mellitus Seizure disorder Unspecified Intellectual disability ASSESSMENT: Patient continues to be exhibiting psychotic symptoms, talking to herself, talking in 3rd person, and demonstrating poor insight and judgment. She continues to talk to herself, to to other people in the room. She is observed to be delusional, with auditory hallucinations. She is confused in the interview. Patient has been on 1:1 sitter since her admission. She states, "I have good news, I may be ." Patient reports that she has not had sex but that [place] is going to have a baby. "I am going to need a wheelchair, she is having a hard time walking." States that the voices tell her to "eat and sleep" Voices do not tell her to hurt herself, "but they try to hurt me." They are "slowly leaving." States that she does not want to hurt herself, "does not want to hurt anyone." MANAGEMENT PLAN: Continue all medications. Increase Zyprexa to 10 mg in AM. Patient is not stable for discharge continues to exhibit mild psychotic symptoms. TIME SPENT: 20 minutes. Vital Signs Vital Signs Date Time Temp Pulse Resp B/P (MAP) Pulse Ox O2 Delivery O2 Flow Rate FiO2 06/14/20 06:47 98.6 64 14 140/70 (93) 06/13/20 18:16 96 Room Air Current Medications Current Medications Medications (Trade) Dose Ordered Sig/Reese Route PRN Reason Start Time Stop Time Status Last Admin Dose Admin Acetaminophen (Tylenol Tab) 650 mg Q6HP PRN PO HEADACHE or DISCOMFORT 06/05/20 17:45 06/14/20 09:31 Al Hydrox/Mg Hydrox/Simethicone (Mylanta) 30 ml Q4HP PRN PO HEARTBURN/INDIGESTION 06/05/20 17:45 06/12/20 12:54 Home Med (Med Rec Complete!) ASDIRECTED XX 06/05/20 16:30 06/05/20 16:23 DC Levetiracetam (Keppra) 500 mg BID PO 06/05/20 21:00 06/14/20 08:34 Lorazepam (Ativan) 0.5 mg DAILY PRN PO ANXIETY 06/05/20 17:45 06/12/20 17:44 DC 06/12/20 14:37 Lurasidone HCl (Latuda) 40 mg DAILY@08 PO 06/06/20 08:00 06/14/20 08:34 Lurasidone HCl (Latuda) 40 mg DAILY@18 PO 06/05/20 18:00 06/13/20 17:08 Magnesium Hydroxide (Milk Of Magnesia) 30 ml DAILYPRN PRN PO CONSTIPATION 06/05/20 17:45 Nicotine (Nicoderm Cq 21mg) 1 patch DAILY TD 06/05/20 09:00 Olanzapine (ZyPREXA ZYDIS) 5 mg BIDP PRN PO AGITATION 06/05/20 18:45 06/06/20 13:40 DC 06/05/20 20:03 Olanzapine (ZyPREXA ZYDIS) 5 mg Q4HP PRN PO AGITATION 06/06/20 13:45 06/13/20 22:45 Olanzapine (ZyPREXA ZYDIS) 10 mg BID PO 06/06/20 09:00 06/06/20 13:39 DC 06/06/20 08:08 Olanzapine (ZyPREXA) 5 mg BID PO 06/08/20 09:00 06/10/20 11:42 DC 06/10/20 09:54 Olanzapine (ZyPREXA) 5 mg QAM PO 06/11/20 09:00 06/14/20 08:51 DC 06/14/20 08:34 Olanzapine (ZyPREXA) 10 mg BID PO 06/14/20 21:00 Olanzapine (ZyPREXA) 10 mg QHS PO 06/10/20 21:00 06/14/20 08:51 DC 06/13/20 20:44 Trazodone HCl (Desyrel) 50 mg QHSP PRN PO INSOMNIA 06/05/20 17:45 06/09/20 11:31 DC 06/08/20 20:00 Trazodone HCl (Desyrel) 100 mg QPM PO 06/09/20 21:00 06/13/20 20:44 Allergies Coded Allergies: acetaminophen (Verified Allergy, Unknown, 06/09/20) PER PT'S MOTHER aripiprazole (Verified Allergy, Unknown, 06/05/20) methylphenidate (Verified Allergy, Unknown, 06/09/20) PER PT'S MOTHER oxycodone (Verified Allergy, Unknown, 06/09/20) PER PT'S MOTHER paroxetine (Verified Allergy, Unknown, 06/05/20) tomato (Verified Allergy, Unknown, 06/05/20) THEODORA DALTON NP Jun 14, 2020 10:58
--- NOTE | 2020-06-14 11:35 | MHIPN ---
DATE: 06/12/2020 VITAL SIGNS: Blood pressure 133/89, pulse 116, temperature 97.4. CHIEF COMPLAINT: Says is doing okay. SUBJECTIVE: Seen for followup in the presence of staff, she is one-on-one observation. Says is doing okay, and she had a good night. MENTAL STATUS EXAMINATION: She is lying in bed, cooperative, but answers questions briefly, coherently. Affect restricted in range. Denies thoughts of harming herself or anyone else. Judgment and insight remain poor. PLAN: Continue current care, including one-on-one observations. SAADIA
--- NOTE | 2020-06-14 11:37 | MHIPN ---
DATE: 06/13/2020 Says she slept last night, has had breakfast this morning, feels relatively okay. I have seen her walking around the [place], with her sitter, and she spent part of yesterday singing, that helped to relax her. MENTAL STATUS EXAMINATION: Cooperative. Currently no agitation. Affect is restricted but reactive. She does not appear to be internally preoccupied at present. Judgment and insight remain poor. PLAN: Continue current care, observations. Further recommendations will be made depending on the clinical picture. I would suggest that she continue with one-on-one observation for now. SAADIA
[2020-06-14] MEDS: OLANZapine ORAL DISINTEGRATING TAB 5MG PO PRN (15:45)
[2020-06-14 16:50] VITALS: BP 117/72
[2020-06-14] MEDS: MAALOX 30 ML SUSP *UDC PO PRN (17:14)
[2020-06-14] MEDS: traZODone 100 MG TAB PO SCH (20:04)
[2020-06-14] MEDS: OLANZapine 10 MG TAB PO SCH (20:04)
[2020-06-15] MEDS: OLANZapine ORAL DISINTEGRATING TAB 5MG PO PRN (04:47)
[2020-06-15 07:02] VITALS: BP 138/98
[2020-06-15] MEDS: NICOTINE 21MG/24HR 1 EA TRANSDERMAL TD SCH (07:55)
[2020-06-15] MEDS: OLANZapine 10 MG TAB PO SCH ×2 (07:55→20:05)
[2020-06-15] MEDS: levETIRAcetam 250MG TABLET (KEPPRA) PO SCH ×2 (07:56→20:05)
[2020-06-15] MEDS: LURASIDONE HCL 40 MG TAB (LATUDA) PO SCH ×2 (07:56→17:31)
--- NOTE | 2020-06-15 13:07 | MHIPNPDOC ---
[facility] Progress Note Progress Note DATE OF SERVICE: 06/15/20 HISTORY: Patient is a 30-year old Single, Disabled, Domiciled, Female who was a 9.57 from [facility] for psychotic symptoms. Patient was exhibiting auditory hallucinations, homicidal ideation and disorganized thought processes. She is cognitively delayed. VITAL SIGNS: See below. NEW TEST RESULTS: CURRENT MEDICATIONS: See below. MENTAL STATUS EXAMINATION: Patient is a 30-year old female, who is admitted to [facility] on a 9.39 legal status for psychotic symptoms and homicidal threats. She is dressed in hospital scrubs, her hygiene and grooming is fair. Her eye contact is fleeting. Speech: Is normal tone and volume Language skills are fair Thought processes including: linear, no disorganization Thought content: Patient is reporting depression, reports elevated anxiety, reduced reports of auditory hallucinations having minimal conversation in third person today Abstract reasoning, and computation: Poor Description of associations: Responding to internal stimuli, speaks in 3rd person minimally Description of abnormal or psychotic thoughts: Auditory hallucinations, states that this is less today. Judgment: fair Insight: fair Orientation: alert and oriented to person, place, time Recent and remote memory: intact Attention span and concentration: poor Language: fair Fund of knowledge: below average Mood: "depressed, I want to go home" Affect: blunted DIAGNOSES: Unspecified Psychotic Disorder Schizoaffective Disorder Cognitive Impairment Type 2 diabetes mellitus Seizure disorder Unspecified Intellectual disability ASSESSMENT: Patient appears to be exhibiting mild psychotic symptoms, talking to herself, talking in 3rd person, and demonstrating fair insight and judgment. Attempting to speak to her mother with my permission to call her mother in my office. Patient demonstrates that she can dial her mother's number. Mother's voice mail is full and cannot received any messages. Patient is reporting that she is feeling better and wants to be discharged. Received call from Primary RN that patient is exhibiting EPS symptoms. Patient is presenting with mild improvement. [id number] Spoke with patient's mother Annette who states that patient has a history of behavioral and attention seeking behaviors. Mother states, "she does things to get attention, and will have a smirk on her face" Mother states that she had trouble getting sleep at night because she would sleep a lot during the day. And most of the psychotic symptoms appeared at night. Mother would reinforce that she was not going to cater to her attention- seeking behaviors and patient would state, "I have a mental illness" Mother ates she has ADHD and that this is where the attention seeking behaviors stemmed from. Reviewed with mother ADHD characteristics and symptoms. Reinforced with patient if she wants to be discharged, she needs to be off the sitter tomorrow. She states, "But I need a sitter, I need someone to watch me." Patient to be trialed off 1:1 sitter tomorrow to move towards a discharge on or Sunday. MANAGEMENT PLAN: Due to EPS patient given an order of Cogentin 2 mg and Zyprexa 10 mg in AM decreased to 5 mg. Benadryl 50 mg po ordered for continued EPS, walking in place. TIME SPENT: 30 minutes. Vital Signs Vital Signs Date Time Temp Pulse Resp B/P (MAP) Pulse Ox O2 Delivery O2 Flow Rate FiO2 06/15/20 07:02 97.5 74 18 138/98 (111) 06/13/20 18:16 96 Room Air Current Medications Current Medications Medications (Trade) Dose Ordered Sig/Reese Route PRN Reason Start Time Stop Time Status Last Admin Dose Admin Acetaminophen (Tylenol Tab) 650 mg Q6HP PRN PO HEADACHE or DISCOMFORT 06/05/20 17:45 06/14/20 15:45 Al Hydrox/Mg Hydrox/Simethicone (Mylanta) 30 ml Q4HP PRN PO HEARTBURN/INDIGESTION 06/05/20 17:45 06/14/20 17:14 Home Med (Med Rec Complete!) ASDIRECTED XX 06/05/20 16:30 06/05/20 16:23 DC Levetiracetam (Keppra) 500 mg BID PO 06/05/20 21:00 06/15/20 07:56 Lorazepam (Ativan) 0.5 mg DAILY PRN PO ANXIETY 06/05/20 17:45 06/12/20 17:44 DC 06/12/20 14:37 Lurasidone HCl (Latuda) 40 mg DAILY@08 PO 06/06/20 08:00 06/15/20 07:56 Lurasidone HCl (Latuda) 40 mg DAILY@18 PO 06/05/20 18:00 06/14/20 18:00 Magnesium Hydroxide (Milk Of Magnesia) 30 ml DAILYPRN PRN PO CONSTIPATION 06/05/20 17:45 06/14/20 20:53 Nicotine (Nicoderm Cq 21mg) 1 patch DAILY TD 06/05/20 09:00 06/15/20 07:55 Olanzapine (ZyPREXA ZYDIS) 5 mg BIDP PRN PO AGITATION 06/05/20 18:45 06/06/20 13:40 DC 06/05/20 20:03 Olanzapine (ZyPREXA ZYDIS) 5 mg Q4HP PRN PO AGITATION 06/06/20 13:45 06/15/20 04:47 Olanzapine (ZyPREXA ZYDIS) 10 mg BID PO 06/06/20 09:00 06/06/20 13:39 DC 06/06/20 08:08 Olanzapine (ZyPREXA) 5 mg BID PO 06/08/20 09:00 06/10/20 11:42 DC 06/10/20 09:54 Olanzapine (ZyPREXA) 5 mg QAM PO 06/11/20 09:00 06/14/20 08:51 DC 06/14/20 08:34 Olanzapine (ZyPREXA) 5 mg QAM PO 06/16/20 09:00 Olanzapine (ZyPREXA) 10 mg BID PO 06/14/20 21:00 06/15/20 12:54 DC 06/15/20 07:55 Olanzapine (ZyPREXA) 10 mg QHS PO 06/10/20 21:00 06/14/20 08:51 DC 06/13/20 20:44 Olanzapine (ZyPREXA) 10 mg QHS PO 06/15/20 21:00 Trazodone HCl (Desyrel) 50 mg QHSP PRN PO INSOMNIA 06/05/20 17:45 06/09/20 11:31 DC 06/08/20 20:00 Trazodone HCl (Desyrel) 100 mg QPM PO 06/09/20 21:00 06/14/20 20:04 Allergies Coded Allergies: acetaminophen (Verified Allergy, Unknown, 06/09/20) PER PT'S MOTHER aripiprazole (Verified Allergy, Unknown, 06/05/20) methylphenidate (Verified Allergy, Unknown, 06/09/20) PER PT'S MOTHER oxycodone (Verified Allergy, Unknown, 06/09/20) PER PT'S MOTHER paroxetine (Verified Allergy, Unknown, 06/05/20) tomato (Verified Allergy, Unknown, 06/05/20) THEODORA DALTON NP Jun 15, 2020 13:07
[2020-06-15] MEDS ORDERED: BENZTROPINE 2 MG TAB PO ONE (14:00)
[2020-06-15] MEDS ORDERED: diphenhydrAMINE 50MG CAP PO STA (15:21)
[2020-06-15 16:13] VITALS: BP 138/90
[2020-06-15] MEDS ORDERED: diphenhydrAMINE 50MG CAP PO ONE (19:00)
[2020-06-15] MEDS: BENZTROPINE 1 MG TAB PO SCH (20:05)
[2020-06-15] MEDS: traZODone 100 MG TAB PO SCH (20:05)
[2020-06-15] MEDS ORDERED: LORazepam 1 MG TAB PO ONE (21:00)
[2020-06-15] MEDS ORDERED: diphenhydrAMINE 50MG/ML VIAL (J1200) IM ONE (21:30)
[2020-06-15] MEDS ORDERED: HALOPERIDOL 5MG/ML VIAL (J1630 PER 1) IM ONE (21:30)
[2020-06-16] MEDS: LURASIDONE HCL 40 MG TAB (LATUDA) PO SCH ×2 (08:03→17:25)
[2020-06-16] MEDS: OLANZapine 5 MG TAB PO SCH (08:03)
[2020-06-16] MEDS: levETIRAcetam 250MG TABLET (KEPPRA) PO SCH ×2 (08:03→20:44)
[2020-06-16] MEDS: BENZTROPINE 1 MG TAB PO SCH ×3 (08:03→20:44)
[2020-06-16] MEDS: NICOTINE 21MG/24HR 1 EA TRANSDERMAL TD SCH (08:03)
--- NOTE | 2020-06-16 11:42 | MHIPNPDOC ---
[facility] Progress Note Progress Note DATE OF SERVICE: 06/16/20 HISTORY: Patient is a 30-year old Single, Disabled, Domiciled, Female who was a 9.57 from [facility] for psychotic symptoms. Patient was exhibiting auditory hallucinations, homicidal ideation and disorganized thought processes. She is cognitively delayed. VITAL SIGNS: See below. NEW TEST RESULTS: CURRENT MEDICATIONS: See below. MENTAL STATUS EXAMINATION: Patient is a 30-year old female, who is admitted to [facility] on a 9.39 legal status for psychotic symptoms and homicidal threats. She is dressed in hospital scrubs, her hygiene and grooming is fair. Her eye contact is fleeting. Speech: Is normal tone and volume Language skills are fair Thought processes including: linear, no disorganization Thought content: Patient is reporting depression, reports elevated anxiety, observed to have auditory hallucinations, Having minimal conversation in third person today Abstract reasoning, and computation: Poor Description of associations: Responding to internal stimuli, speaks in 3rd person minimally while in the office and then left the office and yelling for [place] to come back into her body Description of abnormal or psychotic thoughts: Auditory hallucinations, seen talking to herself Judgment: fair to poor at times Insight: fair to poor at times Orientation: alert and oriented to person, place, time Recent and remote memory: intact Attention span and concentration: poor Language: fair Fund of knowledge: below average Mood: "depressed, I want to go home" Affect: blunted DIAGNOSES: Unspecified Psychotic Disorder Schizoaffective Disorder Cognitive Impairment Type 2 diabetes mellitus Seizure disorder Unspecified Intellectual disability ASSESSMENT: Patient appears to be exhibiting mild psychotic symptoms, talking to herself, talking in 3rd person, and demonstrating fair insight and judgment. Reinforced with patient if she wants to be discharged, she needs to be off the sitter. She states that she wants to be discharged. Reinforced with her that she was yelling for [place] to come back into her body during the night, and that she appeared to have increased psychotic symptoms and needed po and IM medications. She states, "[place] is here, I am [place]. I am here, I want to be discharged." She states that she can be better and seemed to be motivated to change her behaviors in order to be discharged. Patient to be trialed off 1:1 sitter today to move towards a discharge on Sunday. Patient walked out of the office and yelled, "[place] come back!, You need to come back!" Patient then states to the sitter, "I am a vampire." I reinforced with the patient that if she sabotages herself, she will not be eligible for discharge. She insisted that she is going to be discharged, as a vampire. Patient is alert and oriented, it appears that many of these statements are attention-seeking behaviors. She is not reporting any consistent fixed delusions, as a matter of fact, many of her bizarre statements fluctuate daily even in individual sessions. At 1545 a safety representative informed me that after I had spoken to the patient about being trialed off 1:1 Sitter, patient became immediately behavioral needing po medications because she did not want to be taken off close observations. Patient appears to be attempting a secondary gain from hospitalization; getting attention that she is seeking. Mother had addressed that patient does this at home. MANAGEMENT PLAN: Continue medications, we will discharge her when she is stable. Patient is wanting to be discharged but she may continue to have dissociation thus making it difficult to discharge her. TIME SPENT: 20 minutes. Vital Signs Vital Signs Date Time Temp Pulse Resp B/P (MAP) Pulse Ox O2 Delivery O2 Flow Rate FiO2 06/16/20 10:39 Room Air 06/15/20 16:13 97.8 106 16 138/90 (106) 06/13/20 18:16 96 Current Medications Current Medications Medications (Trade) Dose Ordered Sig/Reese Route PRN Reason Start Time Stop Time Status Last Admin Dose Admin Acetaminophen (Tylenol Tab) 650 mg Q6HP PRN PO HEADACHE or DISCOMFORT 06/05/20 17:45 06/14/20 15:45 Al Hydrox/Mg Hydrox/Simethicone (Mylanta) 30 ml Q4HP PRN PO HEARTBURN/INDIGESTION 06/05/20 17:45 06/14/20 17:14 Benztropine Mesylate (Cogentin) 1 mg TID PO 06/15/20 21:00 06/16/20 08:03 Diphenhydramine HCl (Benadryl) 50 mg STAT STAT PO 06/15/20 15:21 06/15/20 15:23 DC 06/15/20 15:29 Home Med (Med Rec Complete!) ASDIRECTED XX 06/05/20 16:30 06/05/20 16:23 DC Levetiracetam (Keppra) 500 mg BID PO 06/05/20 21:00 06/16/20 08:03 Lorazepam (Ativan) 0.5 mg DAILY PRN PO ANXIETY 06/05/20 17:45 06/12/20 17:44 DC 06/12/20 14:37 Lurasidone HCl (Latuda) 40 mg DAILY@08 PO 06/06/20 08:00 06/16/20 08:03 Lurasidone HCl (Latuda) 40 mg DAILY@18 PO 06/05/20 18:00 06/15/20 17:31 Magnesium Hydroxide (Milk Of Magnesia) 30 ml DAILYPRN PRN PO CONSTIPATION 06/05/20 17:45 06/14/20 20:53 Nicotine (Nicoderm Cq 21mg) 1 patch DAILY TD 06/05/20 09:00 06/16/20 08:03 Olanzapine (ZyPREXA ZYDIS) 5 mg BIDP PRN PO AGITATION 06/05/20 18:45 06/06/20 13:40 DC 06/05/20 20:03 Olanzapine (ZyPREXA ZYDIS) 5 mg Q4HP PRN PO AGITATION 06/06/20 13:45 06/15/20 04:47 Olanzapine (ZyPREXA ZYDIS) 10 mg BID PO 06/06/20 09:00 06/06/20 13:39 DC 06/06/20 08:08 Olanzapine (ZyPREXA) 5 mg BID PO 06/08/20 09:00 06/10/20 11:42 DC 06/10/20 09:54 Olanzapine (ZyPREXA) 5 mg QAM PO 06/11/20 09:00 06/14/20 08:51 DC 06/14/20 08:34 Olanzapine (ZyPREXA) 5 mg QAM PO 06/16/20 09:00 06/16/20 08:03 Olanzapine (ZyPREXA) 10 mg BID PO 06/14/20 21:00 06/15/20 12:54 DC 06/15/20 07:55 Olanzapine (ZyPREXA) 10 mg QHS PO 06/10/20 21:00 06/14/20 08:51 DC 06/13/20 20:44 Olanzapine (ZyPREXA) 10 mg QHS PO 06/15/20 21:00 06/15/20 20:05 Trazodone HCl (Desyrel) 50 mg QHSP PRN PO INSOMNIA 06/05/20 17:45 06/09/20 11:31 DC 06/08/20 20:00 Trazodone HCl (Desyrel) 100 mg QPM PO 06/09/20 21:00 06/15/20 20:05 Allergies Coded Allergies: acetaminophen (Verified Allergy, Unknown, 06/09/20) PER PT'S MOTHER aripiprazole (Verified Allergy, Unknown, 06/05/20) methylphenidate (Verified Allergy, Unknown, 06/09/20) PER PT'S MOTHER oxycodone (Verified Allergy, Unknown, 06/09/20) PER PT'S MOTHER paroxetine (Verified Allergy, Unknown, 06/05/20) tomato (Verified Allergy, Unknown, 06/05/20) THEODORA DALTON NP Jun 16, 2020 11:42
[2020-06-16 16:24] VITALS: BP 131/79
[2020-06-16] MEDS: OLANZapine ORAL DISINTEGRATING TAB 5MG PO PRN ×2 (16:53→22:17)
[2020-06-16] MEDS: traZODone 100 MG TAB PO SCH (20:44)
[2020-06-16] MEDS: OLANZapine 10 MG TAB PO SCH (20:44)
[2020-06-17] MEDS ORDERED: QUEtiapine FUMARATE 50 MG TAB PO ONE (01:30)
[2020-06-17 06:57] VITALS: BP 155/90
[2020-06-17] MEDS: LURASIDONE HCL 40 MG TAB (LATUDA) PO SCH ×2 (09:51→17:02)
[2020-06-17] MEDS: OLANZapine 5 MG TAB PO SCH (09:51)
[2020-06-17] MEDS: levETIRAcetam 250MG TABLET (KEPPRA) PO SCH ×2 (09:52→21:15)
[2020-06-17] MEDS: BENZTROPINE 1 MG TAB PO SCH ×3 (09:52→21:14)
[2020-06-17] MEDS: NICOTINE 21MG/24HR 1 EA TRANSDERMAL TD SCH (09:54)
--- NOTE | 2020-06-17 12:43 | MHIPNPDOC ---
[facility] Progress Note Progress Note DATE OF SERVICE: 06/17/20 HISTORY: Patient is a 30-year old Single, Disabled, Domiciled, Female who was a 9.57 from [facility] for psychotic symptoms. Patient was exhibiting auditory hallucinations, homicidal ideation and disorganized thought processes. She is cognitively delayed. VITAL SIGNS: See below. NEW TEST RESULTS: CURRENT MEDICATIONS: See below. MENTAL STATUS EXAMINATION: Patient is a 30-year old female, who is admitted to [facility] on a 9.39 legal status for psychotic symptoms and homicidal threats. She is dressed in hospital scrubs, her hygiene and grooming is fair. Her eye contact is drowsy. Speech: Is normal tone and volume Language skills are fair Thought processes including: linear, no disorganization Thought content: Patient is denying depression, reports decreased anxiety, no observation of responding to auditory hallucinations, she did not have any dialogue in which she spoke in 3rd person Abstract reasoning, and computation: Fair Description of associations: Minimal response to internal stimuli Description of abnormal or psychotic thoughts: Auditory hallucinations, seen talking to herself minimally Judgment: fair Insight: fair Orientation: alert and oriented to person, place, time Recent and remote memory: intact Attention span and concentration: poor Language: fair Fund of knowledge: below average Mood: "I want to talk to my mom, I am fine, I want to go home" Affect: blunted DIAGNOSES: Unspecified Psychotic Disorder Schizoaffective Disorder Cognitive Impairment Type 2 diabetes mellitus Seizure disorder Unspecified Intellectual disability ASSESSMENT: Patient is no longer on a 1: 1 sitter and independent in the milieu. She is rather drowsy on interview today, but having less behavioral episodes of calling out that she is or a vampire. She wats to be discharged tomorrow. Patient spoke with her mother on speaker phone. Mom felt that patient was at her baseline, and feels she is safe to return home tomorrow. Patient is not exhibiting depression, SI/HI, disorganized/bizarre/delusional thinking or manic/paranoia/obsession. MANAGEMENT PLAN: Continue medications, we will discharge her when she is stable. Patient is wanting to be discharged but she may continue to have dissociation thus making it difficult to discharge her. TIME SPENT: 20 minutes. Vital Signs Vital Signs Date Time Temp Pulse Resp B/P (MAP) Pulse Ox O2 Delivery O2 Flow Rate FiO2 06/17/20 07:43 Room Air 06/17/20 06:57 97.7 98 15 155/90 (111) 98 Current Medications Current Medications Medications (Trade) Dose Ordered Sig/Reese Route PRN Reason Start Time Stop Time Status Last Admin Dose Admin Acetaminophen (Tylenol Tab) 650 mg Q6HP PRN PO HEADACHE or DISCOMFORT 06/05/20 17:45 06/14/20 15:45 Al Hydrox/Mg Hydrox/Simethicone (Mylanta) 30 ml Q4HP PRN PO HEARTBURN/INDIGESTION 06/05/20 17:45 06/14/20 17:14 Benztropine Mesylate (Cogentin) 1 mg TID PO 06/15/20 21:00 06/17/20 09:52 Diphenhydramine HCl (Benadryl) 50 mg STAT STAT PO 06/15/20 15:21 06/15/20 15:23 DC 06/15/20 15:29 Home Med (Med Rec Complete!) ASDIRECTED XX 06/05/20 16:30 06/05/20 16:23 DC Levetiracetam (Keppra) 500 mg BID PO 06/05/20 21:00 06/17/20 09:52 Lorazepam (Ativan) 0.5 mg DAILY PRN PO ANXIETY 06/05/20 17:45 06/12/20 17:44 DC 06/12/20 14:37 Lurasidone HCl (Latuda) 40 mg DAILY@08 PO 06/06/20 08:00 06/17/20 09:51 Lurasidone HCl (Latuda) 40 mg DAILY@18 PO 06/05/20 18:00 06/16/20 17:25 Magnesium Hydroxide (Milk Of Magnesia) 30 ml DAILYPRN PRN PO CONSTIPATION 06/05/20 17:45 06/14/20 20:53 Nicotine (Nicoderm Cq 21mg) 1 patch DAILY TD 06/05/20 09:00 06/17/20 09:54 Olanzapine (ZyPREXA ZYDIS) 5 mg BIDP PRN PO AGITATION 06/05/20 18:45 06/06/20 13:40 DC 06/05/20 20:03 Olanzapine (ZyPREXA ZYDIS) 5 mg Q4HP PRN PO AGITATION 06/06/20 13:45 06/16/20 22:17 Olanzapine (ZyPREXA ZYDIS) 10 mg BID PO 06/06/20 09:00 06/06/20 13:39 DC 06/06/20 08:08 Olanzapine (ZyPREXA) 5 mg BID PO 06/08/20 09:00 06/10/20 11:42 DC 06/10/20 09:54 Olanzapine (ZyPREXA) 5 mg QAM PO 06/11/20 09:00 06/14/20 08:51 DC 06/14/20 08:34 Olanzapine (ZyPREXA) 5 mg QAM PO 06/16/20 09:00 06/17/20 09:51 Olanzapine (ZyPREXA) 10 mg BID PO 06/14/20 21:00 06/15/20 12:54 DC 06/15/20 07:55 Olanzapine (ZyPREXA) 10 mg QHS PO 06/10/20 21:00 06/14/20 08:51 DC 06/13/20 20:44 Olanzapine (ZyPREXA) 10 mg QHS PO 06/15/20 21:00 06/16/20 20:44 Trazodone HCl (Desyrel) 50 mg QHSP PRN PO INSOMNIA 06/05/20 17:45 06/09/20 11:31 DC 06/08/20 20:00 Trazodone HCl (Desyrel) 100 mg QPM PO 06/09/20 21:00 06/16/20 20:44 Allergies Coded Allergies: acetaminophen (Verified Allergy, Unknown, 06/09/20) PER PT'S MOTHER aripiprazole (Verified Allergy, Unknown, 06/05/20) methylphenidate (Verified Allergy, Unknown, 06/09/20) PER PT'S MOTHER oxycodone (Verified Allergy, Unknown, 06/09/20) PER PT'S MOTHER paroxetine (Verified Allergy, Unknown, 06/05/20) tomato (Verified Allergy, Unknown, 06/05/20) THEODORA DALTON NP Jun 17, 2020 12:43
[2020-06-17] MEDS: OLANZapine ORAL DISINTEGRATING TAB 5MG PO PRN (15:48)
[2020-06-17] MEDS ORDERED: BENZ-52 PO (16:20)
[2020-06-17] MEDS ORDERED: TRAZ-189 PO (16:20)
[2020-06-17] MEDS ORDERED: OLAN10TA2 PO (16:20)
[2020-06-17] MEDS ORDERED: LATU40TA PO (16:20)
[2020-06-17 16:43] VITALS: BP 137/89
[2020-06-17] MEDS: ACETAMINOPHEN TAB 650MG DOSE (2X325MG) PO PRN (17:15)
[2020-06-17] MEDS ORDERED: LORazepam 0.5 MG TAB PO ONE (18:45)
[2020-06-17] MEDS: traZODone 100 MG TAB PO SCH (21:14)
[2020-06-17] MEDS: OLANZapine 10 MG TAB PO SCH (21:14)
[2020-06-18 06:49] VITALS: BP 130/68
[2020-06-18] MEDS: BENZTROPINE 1 MG TAB PO SCH (08:44)
[2020-06-18] MEDS: OLANZapine 5 MG TAB PO SCH (08:44)
[2020-06-18] MEDS: NICOTINE 21MG/24HR 1 EA TRANSDERMAL TD SCH (08:44)
[2020-06-18] MEDS: LURASIDONE HCL 40 MG TAB (LATUDA) PO SCH (08:44)
[2020-06-18] MEDS: levETIRAcetam 250MG TABLET (KEPPRA) PO SCH (08:44)
--- NOTE | 2020-06-18 09:21 | MHDSPDOC ---
[facility] Discharge Summary Discharge Summary DATE OF ADMISSION: Jun 05, 2020 at 17:53 DATE OF DISCHARGE: June 18, 2020 at 0900 DISCHARGE DIAGNOSES: 1. Unspecified Psychotic Disorder 2. Schizoaffective Disorder 3. Type 2 diabetes mellitus 4. Seizure disorder 5. Unspecified Intellectual disability REASON FOR ADMISSION: Patient is a 30 -year-old , female, who according to senior master scheduler Assessment in the ED" Pt is disorganized and hallucinating. Pt can be observed talking to individuals in her room that are not present. Pt has pressured garbled speech and disorganized thought pattern. Pt comes out of room stating "My heart stopped beating", while this RN was drawing blood for labs patient stated she didn't have any blood, then stated "That isn't my blood, you transplanted it". Pt can be observed talking to a nonexistent male in her room. Pt argues with this gentleman and then will yell "Do it or I'll fing kill you! I'm going to kill you, just do it". When patient redirected patient states "I'm talking to him, not you, I won't hurt you". Pt believes her sister is in the room, according to the patient the sister talks for her, reads for her, and helps her. Per the patient, all of her insides have been removed and we are all . Pt is labile and elevated affect, pressured speech and disorganized thought pattern. Pt is cooperative with care, however is also compulsive." According to PSA Evaluation in the ED: "Pt. states to this health science writer that she would like to stay here "until things get figured out." Pt. is obviously reacting to internal stimuli, looking around room, poor eye contact, talking/answering to self. When asked who she resides with she stated everyone is but they are coming back for the holidays. Pt. then told this witer she was 'Annette'(her mother) and talked about her daughter 'Sree'(herself) stating that Sree would probably have to live in a psychiatric hospital the rest of her life but her family will look out for her. She is cooperative, paces in room." CONSULTANTS INVOLVED: See Medical H + P by Medical Provider TREATMENT AND PROGRESS ON THE UNIT : Patient was admitted to the [facility] on a 9.39 legal status he was afforded the following treatment modalities: 1) Individual Therapy 2) Group Therapy 3) Medication Management 4) Milieu Therapy 5) Safe Environment HOSPITAL COURSE: Patient was admitted to inpatient mental health on a legal status. She was started on her home medications. Due to her disorganized thought patterns, delusional thinking, auditory hallucinations we started patient on Olanzapine 5 mg that was titrated to 10 mg at HS. She continued to have yelling out at auditory hallucinations. She reported observed with periods of dissociative episodes stating that she was "Aunt Luna, Raquel or other person." This appeared to be fabricated and had undertones of attention-seeking behaviors as mother states that she did this at the home, as well. She was reported to have poor sleep at home, and I believe that her intermitted sleep problems have resolved with an increase of Trazodone as well as the Olanzapine 10 mg helping with sedation. we increased Latuda from 20 mg in the AM to 40 mg, this helped to stabilize her mood. Patient was initially admitted with a 1:1 sitter for most of her hospitalization, we discontinued the sitter 2 days ago with good results. Patient demonstrated that she could be independent in the milieu and she is at this time requesting to be discharged. Patient and I have spoke to her mother 3 days in a row and at this morning's individual session, mother agrees that patient has improved and feels comfortable with her discharge. DISCHARGE ASSESSMENT: Patient is alert and oriented, compliant with medications. She is denying depression, anxiety, suicidal/homicidal ideation. She is not observed with abnormal psychotic symtoms. She is not manic, psychotic, delusional, behavioral, or reporting auditory/visual hallucinations today. Due to her baseline mental status exam, there is no rationale for continued hospitalization. Patient is stable for discharge. MENTAL STATUS EXAMINATION ON DISCHARGE: Patient is a 30-year old female, who is admitted to [facility] on a legal status for psychotic symptoms and homicidal threats. She is dressed in hospital scrubs, her hygiene and grooming is poor today Her eye contact is drowsy. She has always exhibited psychomotor retardation throughout her hospitalization. Speech: Is normal tone and volume Language skills are fair Thought processes including: linear, no disorganization Thought content: Patient is denying depression, reports decreased anxiety, no observation of responding to auditory hallucinations, she did not have any dialogue in which she spoke in 3rd person Abstract reasoning, and computation: Fair Description of associations: Minimal response to internal stimuli Description of abnormal or psychotic thoughts: no auditory hallucinations, she was not seen talking to herself this morning Judgment: fair Insight: fair Orientation: alert and oriented to person, place, time Recent and remote memory: intact Attention span and concentration: fair Language: fair Fund of knowledge: below average Mood: "I want to go home" Affect: blunted MEDICATIONS ON DISCHARGE: See Medication Reconciliation PLAN/FOLLOWUP ARRANGEMENTS: See Discharge Planners Notes The amount of time spent in the coordination of care for this patient was approximately 20 minutes. Vital Signs/I&Os Vital Signs Date Time Temp Pulse Resp B/P (MAP) Pulse Ox O2 Delivery O2 Flow Rate FiO2 06/18/20 06:49 98.5 73 14 130/68 (88) 96 Room Air Medications Scheduled Lurasidone Hydrochloride (Latuda) 40 Mg Tablet, 40 MG PO QHS, (Reported) Lurasidone Hydrochloride (Latuda) 40 Mg Tablet, 40 MG PO QAM for Mood Stabilization, #7 Norelgestromin/Ethin.estradiol (Xulane Patch) 1 Each Patch.tdwk, 1 PATCH TD QWEEK, (Reported) Olanzapine (Olanzapine) 10 Mg Tablet, 10 MG PO QHS for Antipsychotic, #7 levETIRAcetam (levETIRAcetam) 500 Mg Tablet, 500 MG PO BID, (Reported) Scheduled PRN Benztropine Mesylate (Benztropine Mesylate) 1 Mg Tablet, 1 MG PO BIDP PRN for EPS, #14 Lorazepam (Ativan) 0.5 Mg Tablet, 0.5 MG PO DAILY PRN for ANXIETY, (Reported) Trazodone HCl (Trazodone HCl) 100 Mg Tablet, 100 MG PO QHSP PRN for INSOMNIA, #7 Allergies Coded Allergies: acetaminophen (Verified Allergy, Unknown, 06/09/20) PER PT'S MOTHER aripiprazole (Verified Allergy, Unknown, 06/05/20) methylphenidate (Verified Allergy, Unknown, 06/09/20) PER PT'S MOTHER oxycodone (Verified Allergy, Unknown, 06/09/20) PER PT'S MOTHER paroxetine (Verified Allergy, Unknown, 06/05/20) tomato (Verified Allergy, Unknown, 06/05/20) THEODORA DALTON NP Jun 18, 2020 08:59
[2020-06-18] MEDS ORDERED: NICO14DI24 TD (13:16)
== END 2020-06-18 11:17 | disposition home or self-care (01) | DRG 751 ==
LOC: M ED 14:42 → EDBD 14:42 → M ED INP 17:53 → M PSY 18:13
PROVIDERS: ADMIT Psychiatry & Neurology Psychiatry; ATTEND Psychiatry & Neurology Psychiatry
DX: F29 Unspecified psychosis not due to a substance or known physiological condition (principal); G40.409 Other generalized epilepsy and epileptic syndromes, not intractable, without status epilepticus; E11.9 Type 2 diabetes mellitus without complications; F79 Unspecified intellectual disabilities; F25.9 Schizoaffective disorder, unspecified; Z79.899 Other long term (current) drug therapy; Z88.8 Allergy status to other drugs, medicaments and biological substances; Z91.018 Allergy to other foods; F17.200 Nicotine dependence, unspecified, uncomplicated; R07.89 Other chest pain; G31.84 Mild cognitive impairment of uncertain or unknown etiology

== ENCOUNTER → 2022-12-06 | Outpatient (REF) | payer MEDICAID ==
[~2022-12-06] MED LIST: ATIV1TAB10 PO; BENZ1TAB5 PO; LATU20TA PO; LATU40TA2 PO; LEVE500T5 PO; MELA1TAB9 PO; MELA5TAB21 PO; NICO14DI24 TD; OLAN1TAB20 PO; TRAZ-189 PO; TRAZ-252 PO; XULA1DIS TD
[2022-12-06 17:45] LABS: APPEARANCE, URINE CLEAR (CLEAR); BACTERIA, URINE AUTO 1+ (NEGATIVE); BILIRUBIN, URINE AUTO NEGATIVE (NEGATIVE); BLOOD, URINE BLOOD 3+ (NEGATIVE); COLOR, URINE STRAW (YELLOW); GLUCOSE, URINE (UA) AUTO NEGATIVE (NEGATIVE); KETONE, URINE AUTO NEGATIVE (NEGATIVE); LEUKOCYTE ESTERASE, URINE AUTO NEGATIVE (NEGATIVE); NITRITE, URINE AUTO NEGATIVE (NEGATIVE); PROTEIN, URINE AUTO NEGATIVE (NEGATIVE); RBC, URINE AUTO 0 /HPF (0-3); SPECIFIC GRAVITY URINE AUTO 1.003 (1.002-1.035); SQUAMOUS EPITHELIAL CELL UR AU 2 /HPF (0-6); UROBILINOGEN, URINE AUTO 0.2 mg/dL (0.0-2.0); WBC, URINE AUTO 0 /HPF (0-3)
== END ==
LOC: M SMT 16:58
PROVIDERS: ATTEND Urology
DX: N32.89 Other specified disorders of bladder (principal)